=== PATIENT | female | born 1955 ===

== ENCOUNTER 2022-12-16 18:20 | Inpatient (IN) ==
[2022-12-16] MEDS ORDERED: FILGRASTIM-SNDZ 300 MCG/0.5 ML SYRINGE SUBCUT ONE (18:40)
[2022-12-16] MEDS ORDERED: LACTATED RINGERS 1,000 ML IV ONE (19:15)
[2022-12-16] MEDS ORDERED: IBUPROFEN 600 MG TABLET ONE (19:16)
[2022-12-16] MEDS ORDERED: IBUPROFEN 600 MG TABLET PO STA (19:18)
[2022-12-16 19:40] LABS: Eosinophils % 4.5 % (0.00-10.9); Hematocrit 28.2 VOL% (35.7-47.0); Hemoglobin 9.7 GM/DL (12.0-16.0); Lymphocytes # 0.1 10*3/uL (1.4-4.0); Lymphocytes % 22.7 % (21.3-54.2); Mean Corpuscular HGB Conc 34.4 GM/DL (32-36); Mean Corpuscular Volume 92.2 FL (87-102); Mean Platelet Volume 10.7 FL (9.6-12.0); Monocytes % 4.5 % (1.7-12.7); Neutrophils % 68.3 % (38.7-73.9); Red Blood Count 3.06 MC/CUMM (3.8-5.5); Red Cell Distribution Width 14.7 % (9.3-17.3)
[2022-12-16 19:58] LABS: Albumin 2.2 G/DL (3.4-5.0); Bilirubin,Total 1.8 MG/DL (0.20-1.00); Calcium 8.4 MG/DL (8.5-10.1); Osmolality,Calculated 279.4 MOS/KG (273-304); Potassium 3.9 MMOL/L (3.5-5.1)
[2022-12-16] MEDS ORDERED: hydrALAZINE 20 MG/1 ML VIAL IV PRN (20:07)
[2022-12-16] MEDS ORDERED: ONDANSETRON 4 MG/2 ML VIAL IV PRN (20:07)
[2022-12-16] MEDS ORDERED: MORPHINE 2 MG/1 ML SYRINGE IV PRN (20:07)
[2022-12-16] MEDS ORDERED: VANCOMYCIN INJ 1,000 MG in SODIUM CHLORIDE 0.9% 250 ML IV STA (20:10)
[2022-12-16] MEDS ORDERED: CEFEPIME 1,000 MG in SODIUM CHLORIDE 0.9% 100 ML IV STA (20:10)
[2022-12-16 20:14] LABS: Urine Appearance Slightly Cloudy (Clear); Urine Color Yellow (Yellow); Urine pH 5.5 (4.5-8.0)
[2022-12-16 20:15] LABS: Bilirubin,Urine Negative (Negative); Blood, Urine Large mg/dL (Negative); Glucose,Urine (UA) Negative (Negative); Ketones,Urine Negative (Negative); Protein,Urine 100 mg/dL (Negative); Urine Specific Gravity 1.015 (1.001-1.035)
[2022-12-16 20:18] LABS: Bacteria,Urine Moderate /HPF (Few); Nitrite,Urine Positive (Negative)
[2022-12-16 20:28] LABS: % Iron Saturation 9.7 % (18-50)
[2022-12-16] MEDS ORDERED: HEPARIN 5,000 UNIT/1 ML VIAL SUBCUT SCH (20:30)
[2022-12-16 20:39] LABS: Folate > 24.00 NG/ML (5.38-24.0); Vitamin B12 476 PG/ML (211-911)
[2022-12-16 21:02] LABS: White Blood Count 0.22 T/CUMM (4-12)
[2022-12-16 21:03] LABS: Platelet Count 26 T/CUMM (130-400)
[2022-12-16] MEDS: SODIUM CHLORIDE 0.9% 1,000 ML IV SCH (21:30)
[2022-12-16 21:38] LABS: Band Neutrophils 18 % (0-10); Eosinophils 5 % (0-10); Lymphocytes 23 % (20-55); Platelet Estimate Decreased; Total Cells Counted 100
[2022-12-16 21:39] LABS: Atypical Lymphocytes Few
[2022-12-17 05:04] LABS: Eosinophils % 4.5 % (0.00-10.9); Hematocrit 24.1 VOL% (35.7-47.0); Hemoglobin 8.3 GM/DL (12.0-16.0); Immature Granulocytes % 1.5 %; Immature Granulocytes Absolute 0.01 #; Lymphocytes # 0.1 10*3/uL (1.4-4.0); Lymphocytes % 10.6 % (21.3-54.2); Mean Corpuscular HGB Conc 34.4 GM/DL (32-36); Mean Corpuscular Volume 94.1 FL (87-102); Monocytes # 0.1 10*3/uL (0.11-0.8); Monocytes % 18.2 % (1.7-12.7); Neutrophils % 65.2 % (38.7-73.9); Red Blood Count 2.56 MC/CUMM (3.8-5.5); Red Cell Distribution Width 14.8 % (9.3-17.3)
[2022-12-17 05:07] LABS: Platelet Count 20 T/CUMM (130-400); White Blood Count 0.66 T/CUMM (4-12)
[2022-12-17 05:26] LABS: Eosinophils 4 % (0-10); Hypochromia Slight; Lymphocytes 24 % (20-55); Platelet Estimate Decreased; Total Cells Counted 100
[2022-12-17 05:31] LABS: Albumin 1.8 G/DL (3.4-5.0); Bilirubin,Total 1.3 MG/DL (0.20-1.00); Calcium 7.9 MG/DL (8.5-10.1); Osmolality,Calculated 281.1 MOS/KG (273-304); Potassium 3.9 MMOL/L (3.5-5.1); Risk Ratio 9.4; Thyroid Stimulating Hormone 0.501 uIU/ml (0.358-3.74); Total Protein 5.1 G/DL (6.4-8.2); VLDL Cholesterol 35.6 MG/DL
[2022-12-17] MEDS: SODIUM CHLORIDE 0.9% 1,000 ML IV SCH ×3 (06:24→20:43)
[2022-12-17] MEDS: PANTOPRAZOLE 40 MG TABLET PO SCH (09:17)
[2022-12-17] MEDS: CEFEPIME 1,000 MG in SODIUM CHLORIDE 0.9% 100 ML IV SCH ×2 (09:47→18:01)
[2022-12-17] MEDS: VANCOMYCIN INJ 1,750 MG in SODIUM CHLORIDE 0.9% 500 ML IV SCH (11:21)
[2022-12-17] MEDS: ACETAMINOPHEN 325 MG TABLET PO PRN (14:16)
[2022-12-17] MEDS ORDERED: FERRIC GLUCONATE COMPLEX 125 MG in SODIUM CHLORIDE 0.9% 100 ML IV ONE (15:00)
[2022-12-17] MEDS: FILGRASTIM-SNDZ 480 MCG/0.8 ML SYRINGE SUBCUT SCH (16:37)
[2022-12-17] MEDS: INSULIN LISPRO 100 UNIT/ML SUBCUT SCH ×2 (16:37→21:35)
[2022-12-17] MEDS: SIMVASTATIN 10 MG TABLET PO SCH (21:35)
[2022-12-18] MEDS: SODIUM CHLORIDE 0.9% 1,000 ML IV SCH ×3 (00:43→14:30)
[2022-12-18] MEDS: CEFEPIME 1,000 MG in SODIUM CHLORIDE 0.9% 100 ML IV SCH ×3 (02:07→17:18)
[2022-12-18 04:52] LABS: Basophils % 0.3 % (0.0-0.8); Eosinophils # 0.1 10*3/uL (0.0-0.87); Eosinophils % 2.7 % (0.00-10.9); Hematocrit 24.5 VOL% (35.7-47.0); Hemoglobin 7.9 GM/DL (12.0-16.0); Immature Granulocytes % 4.7 %; Immature Granulocytes Absolute 0.14 #; Lymphocytes # 0.1 10*3/uL (1.4-4.0); Lymphocytes % 3.7 % (21.3-54.2); Mean Corpuscular HGB Conc 32.2 GM/DL (32-36); Mean Corpuscular Volume 95.7 FL (87-102); Mean Platelet Volume 11.5 FL (9.6-12.0); Monocytes # 0.2 10*3/uL (0.11-0.8); Monocytes % 6.7 % (1.7-12.7); Neutrophils % 81.9 % (38.7-73.9); Red Blood Count 2.56 MC/CUMM (3.8-5.5); Red Cell Distribution Width 14.9 % (9.3-17.3); White Blood Count 2.97 T/CUMM (4-12)
[2022-12-18 04:54] LABS: Platelet Count 27 T/CUMM (130-400)
[2022-12-18 05:07] LABS: Calcium 7.9 MG/DL (8.5-10.1); Osmolality,Calculated 279.8 MOS/KG (273-304); Potassium 3.3 MMOL/L (3.5-5.1)
[2022-12-18 05:16] LABS: Band Neutrophils 4 % (0-10); Eosinophils 2 % (0-10); Hypochromia Slight; Lymphocytes 6 % (20-55); Platelet Estimate Decreased; Total Cells Counted 100
[2022-12-18] MEDS ORDERED: POTASSIUM CHLORIDE 20 MEQ TABLET PO ONE (09:20)
[2022-12-18] MEDS: FILGRASTIM-SNDZ 480 MCG/0.8 ML SYRINGE SUBCUT SCH (09:46)
[2022-12-18] MEDS: PANTOPRAZOLE 40 MG TABLET PO SCH (09:46)
[2022-12-18] MEDS: FERRIC GLUCONATE COMPLEX 125 MG in SODIUM CHLORIDE 0.9% 100 ML IV SCH (09:46)
[2022-12-18] MEDS: CHOLECALCIFEROL 5,000 UNIT TABLET PO SCH (09:46)
[2022-12-18] MEDS: FOLIC ACID 1 MG TABLET PO SCH (09:46)
[2022-12-18] MEDS: INSULIN LISPRO 100 UNIT/ML SUBCUT SCH ×4 (09:53→20:21)
[2022-12-18] MEDS: VANCOMYCIN INJ 1,750 MG in SODIUM CHLORIDE 0.9% 500 ML IV SCH (13:39)
[2022-12-18] MEDS: SIMVASTATIN 10 MG TABLET PO SCH (20:20)
[2022-12-19] MEDS: SODIUM CHLORIDE 0.9% 1,000 ML IV SCH ×2 (00:26→09:42)
[2022-12-19] MEDS: CEFEPIME 1,000 MG in SODIUM CHLORIDE 0.9% 100 ML IV SCH ×2 (01:58→11:24)
[2022-12-19 04:19] LABS: Basophils % 0.5 % (0.0-0.8); Eosinophils # 0.1 10*3/uL (0.0-0.87); Eosinophils % 1.3 % (0.00-10.9); Hematocrit 25.3 VOL% (35.7-47.0); Hemoglobin 8.3 GM/DL (12.0-16.0); Immature Granulocytes Absolute 0.55 #; Lymphocytes # 0.2 10*3/uL (1.4-4.0); Lymphocytes % 2.9 % (21.3-54.2); Mean Corpuscular HGB Conc 32.8 GM/DL (32-36); Mean Corpuscular Volume 95.5 FL (87-102); Mean Platelet Volume 11.2 FL (9.6-12.0); Monocytes # 0.5 10*3/uL (0.11-0.8); Monocytes % 6.6 % (1.7-12.7); Neutrophils % 81.7 % (38.7-73.9); Platelet Count 52 T/CUMM (130-400); Red Blood Count 2.65 MC/CUMM (3.8-5.5); Red Cell Distribution Width 15.2 % (9.3-17.3); White Blood Count 7.86 T/CUMM (4-12)
[2022-12-19 04:32] LABS: Band Neutrophils 8 % (0-10); Total Cells Counted 100
[2022-12-19 04:33] LABS: Anisocytosis Slight; Platelet Estimate Decreased
[2022-12-19 04:36] LABS: Calcium 8.3 MG/DL (8.5-10.1); Osmolality,Calculated 281.5 MOS/KG (273-304); Potassium 3.7 MMOL/L (3.5-5.1)
[2022-12-19] MEDS: INSULIN LISPRO 100 UNIT/ML SUBCUT SCH ×3 (08:08→15:56)
[2022-12-19] MEDS: CHOLECALCIFEROL 5,000 UNIT TABLET PO SCH (08:15)
[2022-12-19] MEDS: ACETAMINOPHEN 325 MG TABLET PO PRN (08:15)
[2022-12-19] MEDS: FOLIC ACID 1 MG TABLET PO SCH (08:15)
[2022-12-19] MEDS: PANTOPRAZOLE 40 MG TABLET PO SCH (08:15)
[2022-12-19] MEDS: FILGRASTIM-SNDZ 480 MCG/0.8 ML SYRINGE SUBCUT SCH (08:18)
[2022-12-19] MEDS: FERRIC GLUCONATE COMPLEX 125 MG in SODIUM CHLORIDE 0.9% 100 ML IV SCH (12:12)
[2022-12-19 16:10] VITALS: BP 100/67
== END 2022-12-19 16:55 | disposition home health service (06) | DRG 809 ==
LOC: N.ED 18:20 → N.TELES 20:07 → SUATTDRO 20:07 → N.TELES 23:30
PROVIDERS: ADMIT Internal Medicine; ATTEND Internal Medicine